=== PATIENT | male | born 1945 | race Caucasian/White ===

== ENCOUNTER 2022-04-26 12:00 | Emergency (ER) | payer OTHER, BC ==
[~2022-04-26] VITALS: Ht 175.3 cm; Wt 79.8 kg
[2022-04-26 12:00] VITALS: BP_SYST 117
--- NOTE | 2022-04-26 12:00 | NUR ---
BROUGHT INTO TRIAGE TENT AND TRIAGED. AWAITING ER BED AVAILABILITY
--- NOTE | 2022-04-26 12:28 | NUR ---
DR PORTER OUT TO TRIAGE TENT TO EVALUATE PT.
[2022-04-26] MEDS ORDERED: NIRM1TAB PO (12:32)
--- NOTE | 2022-04-26 12:52 | NUR ---
Patient given written and verbal discharge instructions and verbalizes understanding. ER MD discussed with patient the results and treatment provided. Patient in stable condition. ID arm band removed. Rx of PAXLOVID given. Patient educated on pain management and to follow up with PMD. Pain Scale 0/10. Opportunity for questions provided and answered. Medication side effect fact sheet provided.
== END 2022-04-26 12:52 | disposition home or self-care (01) ==
LOC: SED 12:00
DX: U07.1 COVID-19 (principal)
CPT/HCPCS: 99283